=== PATIENT | female | born 1950 | race Caucasian/White ===

== ENCOUNTER 2022-03-08 18:49 | Inpatient (IN) | payer MEDICARE, MEDICAID ==
[~2022-03-08] VITALS: Ht 160 cm; Wt 84.4 kg
[2022-03-08 08:00] VITALS: BP 106/58
[2022-03-08 19:00] VITALS: BP 106/58
[2022-03-08 20:00] VITALS: BP 106/58
[2022-03-08] MEDS ORDERED: DEXTROSE 50% WATER 50ML SYRINGE IV PRN (23:30)
[2022-03-08] MEDS: ATORVASTATIN CALCIUM 40MG TABLET PO SCH (23:30)
[2022-03-08] MEDS ORDERED: DIPHENHYDRAMINE 25MG CAPSULE PO PRN (23:45)
[2022-03-08] MEDS ORDERED: CALCIUM CARBONATE 500MG TABLET CHEW PO PRN (23:45)
[2022-03-08] MEDS ORDERED: METOCLOPRAMIDE HCL 5MG TABLET PO PRN (23:45)
[2022-03-08] MEDS ORDERED: MAGNESIUM/ALUMINUM HYDROXIDE/SIMETHICONE 30ML UDC PO PRN (23:45)
[2022-03-08] MEDS ORDERED: ONDANSETRON 4MG ODT PO PRN (23:45)
[2022-03-08] MEDS ORDERED: BISACODYL 10MG SUPP PR PRN (23:45)
[2022-03-08] MEDS ORDERED: NON FORMULARY PATIENT HOME MED PO PRN (23:45)
[2022-03-09] MEDS ORDERED: ONDANSETRON HCL 4MG TABLET PO PRN
[2022-03-09] MEDS ORDERED: POLYETHYLENE GLYCOL 3350 (17GM) 1 DOSE PACK PO PRN
[2022-03-09] MEDS ORDERED: SENNOSIDES/DOCUSATE SOD 8.6/50MG TABLET PO PRN
[2022-03-09] MEDS ORDERED: ONDANSETRON HCL 4MG/2ML INJ IV PRN
[2022-03-09] MEDS: INSULIN LISPRO 100 UNITS/ML SUBCUT SCH ×5 (00:06→22:20)
[2022-03-09] MEDS: BLOOD SUGAR DIAGNOSTIC STRIP TEST SCH ×5 (00:09→20:36)
[2022-03-09] MEDS: INSULIN GLARGINE 100 UNITS/ML SUBCUT SCH ×3 (00:10→22:18)
[2022-03-09 03:39] LABS: CLARITY URINE CLEAR (CLEAR); COLOR URINE YELLOW (YELLOW); SPECIFIC GRAVITY URINE 1.021 (1.005-1.030)
[2022-03-09 03:40] LABS: KETONES URINE NEGATIVE (NEGATIVE); LEUKOCYTE ESTERASE URINE 1+ (NEGATIVE); NITRITE URINE POSITIVE (NEGATIVE); OCCULT BLOOD URINE NEGATIVE (NEGATIVE); PROTEIN URINE NEGATIVE (NEGATIVE)
[2022-03-09] MEDS ORDERED: BLOOD SUGAR DIAGNOSTIC STRIP TEST SCH (06:30)
[2022-03-09] MEDS: ALBUTEROL (0.083%) 2.5MG/3ML NEB HHN SCH ×3 (07:38→20:16)
[2022-03-09] MEDS ORDERED: INSULIN LISPRO 100 UNITS/ML SUBCUT SCH (09:00)
[2022-03-09] MEDS: HYDRALAZINE HCL 50MG TABLET PO SCH ×2 (09:15→21:00)
[2022-03-09] MEDS: ASPIRIN 81MG TABLET PO SCH (09:15)
[2022-03-09] MEDS: FUROSEMIDE 40MG TABLET PO SCH ×2 (09:16→22:11)
[2022-03-09] MEDS: METOPROLOL SUCCINATE 50MG ER TABLET PO SCH (09:17)
[2022-03-09] MEDS: AMLODIPINE 10MG TABLET PO SCH (09:17)
[2022-03-09] MEDS: ACETAMINOPHEN 325MG TABLET PO PRN ×4 (09:18→22:10)
[2022-03-09] MEDS: ASCORBIC ACID 500 MG TABLET PO SCH ×2 (09:19→22:10)
[2022-03-09] MEDS: FOLIC ACID/VITAMIN B COMP W-C TABLET PO SCH (09:19)
[2022-03-09] MEDS: POTASSIUM CHLORIDE 20MEQ TABLET SR PO SCH (09:19)
[2022-03-09] MEDS: CLOPIDOGREL 75MG TABLET PO SCH (09:19)
[2022-03-09] MEDS: ISOSORBIDE MONONITRATE 60MG TABLET SR 24HR PO SCH (10:14)
[2022-03-09] MEDS: LEVOFLOXACIN 250MG TABLET PO SCH (11:32)
[2022-03-09 12:09] LABS: BASOPHILS % 0.7 % (0.0-2.0); HEMATOCRIT. 35.1 % (36.0-48.0); HEMOGLOBIN. 11.7 g/dL (12.0-16.0); LYMPHOCYTES % 11.5 % (20.0-50.0); MEAN CORPUSCULAR HEMOGLOBIN 36.7 pg (28.0-32.0); MEAN CORPUSCULAR VOLUME 109.5 fL (81.0-99.0); MEAN PLATELET VOLUME 9.3 fl (7.4-10.4); MONOCYTES % 6.8 % (2.0-8.0); PLATELET 304 x1000/uL (130-400); RED CELL DISTRIBUTION WIDTH 15.8 % (11.6-14.6)
[2022-03-09 12:52] LABS: T4 FREE 1.23 ng/dL (0.76-1.46)
[2022-03-09 20:00] VITALS: BP 107/56
[2022-03-09] MEDS: ATORVASTATIN CALCIUM 40MG TABLET PO SCH (22:10)
[2022-03-10] MEDS: ALBUTEROL (0.083%) 2.5MG/3ML NEB HHN SCH ×4 (01:26→20:44)
[2022-03-10] MEDS: BLOOD SUGAR DIAGNOSTIC STRIP TEST SCH ×4 (06:16→21:05)
[2022-03-10] MEDS: INSULIN LISPRO 100 UNITS/ML SUBCUT SCH ×4 (06:23→21:00)
[2022-03-10 08:00] VITALS: BP 111/44
[2022-03-10] MEDS: CLOPIDOGREL 75MG TABLET PO SCH (10:30)
[2022-03-10] MEDS: AMLODIPINE 10MG TABLET PO SCH (10:30)
[2022-03-10] MEDS: METOPROLOL SUCCINATE 50MG ER TABLET PO SCH (10:30)
[2022-03-10] MEDS: HYDRALAZINE HCL 50MG TABLET PO SCH ×2 (10:30→21:00)
[2022-03-10] MEDS: ISOSORBIDE MONONITRATE 60MG TABLET SR 24HR PO SCH (10:31)
[2022-03-10] MEDS: POTASSIUM CHLORIDE 20MEQ TABLET SR PO SCH (10:31)
[2022-03-10] MEDS: ASCORBIC ACID 500 MG TABLET PO SCH ×2 (10:31→21:04)
[2022-03-10] MEDS: FOLIC ACID/VITAMIN B COMP W-C TABLET PO SCH (10:31)
[2022-03-10] MEDS: FUROSEMIDE 40MG TABLET PO SCH ×2 (10:31→21:04)
[2022-03-10] MEDS: ASPIRIN 81MG TABLET PO SCH (10:31)
[2022-03-10] MEDS: INSULIN GLARGINE 100 UNITS/ML SUBCUT SCH ×2 (10:57→22:00)
[2022-03-10] MEDS: LEVOFLOXACIN 250MG TABLET PO SCH (12:05)
[2022-03-10] MEDS ORDERED: TRAMADOL 50MG TABLET PO PRN (17:45)
[2022-03-10 20:00] VITALS: BP 108/37
[2022-03-10] MEDS: ATORVASTATIN CALCIUM 40MG TABLET PO SCH (21:04)
[2022-03-11] MEDS: ALBUTEROL (0.083%) 2.5MG/3ML NEB HHN SCH ×3 (01:16→19:46)
[2022-03-11] MEDS: INSULIN LISPRO 100 UNITS/ML SUBCUT SCH ×4 (05:46→22:11)
[2022-03-11] MEDS: BLOOD SUGAR DIAGNOSTIC STRIP TEST SCH ×4 (05:52→21:20)
[2022-03-11 08:00] VITALS: BP 109/75
[2022-03-11] MEDS: ISOSORBIDE MONONITRATE 60MG TABLET SR 24HR PO SCH (09:00)
[2022-03-11] MEDS: AMLODIPINE 10MG TABLET PO SCH (09:00)
[2022-03-11] MEDS: HYDRALAZINE HCL 50MG TABLET PO SCH ×2 (09:00→21:20)
[2022-03-11] MEDS: METOPROLOL SUCCINATE 50MG ER TABLET PO SCH (09:00)
[2022-03-11] MEDS: ASPIRIN 81MG TABLET PO SCH (10:26)
[2022-03-11] MEDS: FOLIC ACID/VITAMIN B COMP W-C TABLET PO SCH (10:26)
[2022-03-11] MEDS: CLOPIDOGREL 75MG TABLET PO SCH (10:26)
[2022-03-11] MEDS: FUROSEMIDE 40MG TABLET PO SCH ×2 (10:26→21:20)
[2022-03-11] MEDS: ASCORBIC ACID 500 MG TABLET PO SCH ×2 (10:26→21:20)
[2022-03-11] MEDS: POTASSIUM CHLORIDE 20MEQ TABLET SR PO SCH (10:26)
[2022-03-11] MEDS: ALPRAZOLAM 0.5 MG TABLET PO PRN (10:27)
[2022-03-11] MEDS: INSULIN GLARGINE 100 UNITS/ML SUBCUT SCH ×2 (10:28→22:11)
[2022-03-11] MEDS: LEVOFLOXACIN 250MG TABLET PO SCH (10:28)
[2022-03-11 20:14] VITALS: BP 97/42
[2022-03-11] MEDS: ATORVASTATIN CALCIUM 40MG TABLET PO SCH (21:20)
[2022-03-12] MEDS: ALBUTEROL (0.083%) 2.5MG/3ML NEB HHN SCH ×4 (01:09→21:22)
[2022-03-12] MEDS: BLOOD SUGAR DIAGNOSTIC STRIP TEST SCH ×4 (05:31→20:16)
[2022-03-12 05:55] LABS: EOSINOPHILS % 6.7 % (0.0-5.0); HEMATOCRIT. 33.8 % (36.0-48.0); HEMOGLOBIN. 11.4 g/dL (12.0-16.0); LYMPHOCYTES % 22.9 % (20.0-50.0); MEAN CORPUSCULAR HEMOGLOBIN 36.2 pg (28.0-32.0); MEAN CORPUSCULAR VOLUME 107.4 fL (81.0-99.0); MEAN PLATELET VOLUME 9.5 fl (7.4-10.4); MONOCYTES % 8.3 % (2.0-8.0); NEUTROPHILS % 61.1 % (40.0-76.0); PLATELET 288 x1000/uL (130-400); RED BLOOD CELL COUNT 3.14 mill/uL (4.2-5.4); RED CELL DISTRIBUTION WIDTH 15.2 % (11.6-14.6)
[2022-03-12] MEDS: INSULIN LISPRO 100 UNITS/ML SUBCUT SCH ×4 (06:17→21:23)
[2022-03-12 08:00] VITALS: BP 123/48
[2022-03-12] MEDS: ASPIRIN 81MG TABLET PO SCH (08:51)
[2022-03-12] MEDS: FUROSEMIDE 40MG TABLET PO SCH ×2 (08:51→20:16)
[2022-03-12] MEDS: ISOSORBIDE MONONITRATE 60MG TABLET SR 24HR PO SCH (08:52)
[2022-03-12] MEDS: ASCORBIC ACID 500 MG TABLET PO SCH ×2 (08:53→20:16)
[2022-03-12] MEDS: AMLODIPINE 10MG TABLET PO SCH (08:53)
[2022-03-12] MEDS: FOLIC ACID/VITAMIN B COMP W-C TABLET PO SCH (08:53)
[2022-03-12] MEDS: HYDRALAZINE HCL 50MG TABLET PO SCH ×2 (08:53→20:16)
[2022-03-12] MEDS: METOPROLOL SUCCINATE 50MG ER TABLET PO SCH (08:53)
[2022-03-12] MEDS: POTASSIUM CHLORIDE 20MEQ TABLET SR PO SCH (08:53)
[2022-03-12] MEDS: CLOPIDOGREL 75MG TABLET PO SCH (08:54)
[2022-03-12] MEDS: INSULIN GLARGINE 100 UNITS/ML SUBCUT SCH ×2 (08:56→21:23)
[2022-03-12] MEDS: ACETAMINOPHEN 325MG TABLET PO PRN ×2 (11:12→18:45)
[2022-03-12] MEDS: LEVOFLOXACIN 250MG TABLET PO SCH (11:12)
[2022-03-12 19:51] VITALS: BP 132/49
[2022-03-12] MEDS: ATORVASTATIN CALCIUM 40MG TABLET PO SCH (20:16)
[2022-03-12] MEDS: ALPRAZOLAM 0.5 MG TABLET PO PRN (21:24)
[2022-03-13] MEDS: ALBUTEROL (0.083%) 2.5MG/3ML NEB HHN SCH ×4 (02:44→21:26)
[2022-03-13] MEDS: BLOOD SUGAR DIAGNOSTIC STRIP TEST SCH ×4 (05:40→20:53)
[2022-03-13] MEDS: INSULIN LISPRO 100 UNITS/ML SUBCUT SCH ×4 (06:12→21:03)
[2022-03-13 08:00] VITALS: BP 121/45
[2022-03-13] MEDS: ISOSORBIDE MONONITRATE 60MG TABLET SR 24HR PO SCH (09:55)
[2022-03-13] MEDS: POTASSIUM CHLORIDE 20MEQ TABLET SR PO SCH (09:55)
[2022-03-13] MEDS: METOPROLOL SUCCINATE 50MG ER TABLET PO SCH (09:56)
[2022-03-13] MEDS: ASCORBIC ACID 500 MG TABLET PO SCH ×2 (09:56→20:53)
[2022-03-13] MEDS: ASPIRIN 81MG TABLET PO SCH (09:56)
[2022-03-13] MEDS: CLOPIDOGREL 75MG TABLET PO SCH (09:56)
[2022-03-13] MEDS: FOLIC ACID/VITAMIN B COMP W-C TABLET PO SCH (09:56)
[2022-03-13] MEDS: FUROSEMIDE 40MG TABLET PO SCH (09:56)
[2022-03-13] MEDS: AMLODIPINE 10MG TABLET PO SCH (09:57)
[2022-03-13] MEDS: HYDRALAZINE HCL 50MG TABLET PO SCH ×2 (09:57→20:53)
[2022-03-13] MEDS: INSULIN GLARGINE 100 UNITS/ML SUBCUT SCH ×2 (10:12→21:03)
[2022-03-13] MEDS: LEVOFLOXACIN 250MG TABLET PO SCH (11:30)
[2022-03-13] MEDS ORDERED: NALOXONE HCL 0.4MG/ML VIAL IV PRN (12:00)
[2022-03-13 20:00] VITALS: BP 121/46
[2022-03-13] MEDS: ATORVASTATIN CALCIUM 40MG TABLET PO SCH (20:53)
[2022-03-13] MEDS: MELATONIN 3MG TABLET PO PRN (23:53)
[2022-03-14] MEDS: ALBUTEROL (0.083%) 2.5MG/3ML NEB HHN SCH ×4 (02:59→20:08)
[2022-03-14] MEDS: BLOOD SUGAR DIAGNOSTIC STRIP TEST SCH ×4 (05:48→21:07)
[2022-03-14] MEDS: INSULIN LISPRO 100 UNITS/ML SUBCUT SCH ×4 (06:32→21:19)
[2022-03-14 06:50] LABS: BASOPHILS % 1.3 % (0.0-2.0); EOSINOPHILS % 8.1 % (0.0-5.0); HEMATOCRIT. 30.6 % (36.0-48.0); HEMOGLOBIN. 10.4 g/dL (12.0-16.0); LYMPHOCYTES % 26.6 % (20.0-50.0); MEAN CORPUSCULAR HEMOGLOBIN 36.4 pg (28.0-32.0); MEAN CORPUSCULAR VOLUME 106.9 fL (81.0-99.0); MEAN PLATELET VOLUME 9.5 fl (7.4-10.4); MONOCYTES % 8.2 % (2.0-8.0); NEUTROPHILS % 55.8 % (40.0-76.0); PLATELET 259 x1000/uL (130-400); RED BLOOD CELL COUNT 2.86 mill/uL (4.2-5.4); RED CELL DISTRIBUTION WIDTH 15.8 % (11.6-14.6)
[2022-03-14 07:53] VITALS: BP 124/39
[2022-03-14] MEDS: AMLODIPINE 10MG TABLET PO SCH (09:00)
[2022-03-14] MEDS: METOPROLOL SUCCINATE 50MG ER TABLET PO SCH (09:00)
[2022-03-14] MEDS: POTASSIUM CHLORIDE 20MEQ TABLET SR PO SCH (09:11)
[2022-03-14] MEDS: FUROSEMIDE 40MG TABLET PO SCH (09:11)
[2022-03-14] MEDS: ISOSORBIDE MONONITRATE 60MG TABLET SR 24HR PO SCH (09:11)
[2022-03-14] MEDS: ASCORBIC ACID 500 MG TABLET PO SCH ×2 (09:12→20:49)
[2022-03-14] MEDS: HYDRALAZINE HCL 50MG TABLET PO SCH ×2 (09:12→20:49)
[2022-03-14] MEDS: ASPIRIN 81MG TABLET PO SCH (09:12)
[2022-03-14] MEDS: FOLIC ACID/VITAMIN B COMP W-C TABLET PO SCH (09:13)
[2022-03-14] MEDS: CLOPIDOGREL 75MG TABLET PO SCH (09:13)
[2022-03-14] MEDS: ALPRAZOLAM 0.5 MG TABLET PO PRN ×2 (10:40→21:13)
[2022-03-14] MEDS: INSULIN GLARGINE 100 UNITS/ML SUBCUT SCH ×2 (10:50→21:20)
[2022-03-14] MEDS: LEVOFLOXACIN 250MG TABLET PO SCH (11:39)
[2022-03-14 20:00] VITALS: BP 130/50
[2022-03-14] MEDS: ATORVASTATIN CALCIUM 40MG TABLET PO SCH (20:49)
[2022-03-15] MEDS: ALBUTEROL (0.083%) 2.5MG/3ML NEB HHN SCH ×4 (02:50→18:00)
[2022-03-15] MEDS: BLOOD SUGAR DIAGNOSTIC STRIP TEST SCH ×4 (06:28→21:00)
[2022-03-15 06:29] LABS: EOSINOPHILS % 7.5 % (0.0-5.0); HEMATOCRIT. 29.1 % (36.0-48.0); HEMOGLOBIN. 9.7 g/dL (12.0-16.0); LYMPHOCYTES % 21.3 % (20.0-50.0); MEAN CORPUSCULAR VOLUME 107.5 fL (81.0-99.0); MEAN PLATELET VOLUME 9.4 fl (7.4-10.4); MONOCYTES % 7.6 % (2.0-8.0); NEUTROPHILS % 62.6 % (40.0-76.0); PLATELET 245 x1000/uL (130-400)
[2022-03-15 08:00] VITALS: BP 136/47
[2022-03-15] MEDS: ISOSORBIDE MONONITRATE 60MG TABLET SR 24HR PO SCH (09:00)
[2022-03-15] MEDS: CLOPIDOGREL 75MG TABLET PO SCH (09:00)
[2022-03-15] MEDS: METOPROLOL SUCCINATE 50MG ER TABLET PO SCH (09:00)
[2022-03-15] MEDS: AMLODIPINE 10MG TABLET PO SCH (09:00)
[2022-03-15] MEDS: INSULIN LISPRO 100 UNITS/ML SUBCUT SCH ×4 (09:00→21:09)
[2022-03-15] MEDS: HYDRALAZINE HCL 50MG TABLET PO SCH ×2 (09:00→21:02)
[2022-03-15] MEDS: ASPIRIN 81MG TABLET PO SCH (09:00)
[2022-03-15] MEDS: FOLIC ACID/VITAMIN B COMP W-C TABLET PO SCH (09:00)
[2022-03-15] MEDS: ASCORBIC ACID 500 MG TABLET PO SCH ×2 (09:00→21:00)
[2022-03-15] MEDS: INSULIN GLARGINE 100 UNITS/ML SUBCUT SCH ×2 (11:12→21:08)
[2022-03-15] MEDS: ATORVASTATIN CALCIUM 40MG TABLET PO SCH (21:01)
[2022-03-16] MEDS: ALPRAZOLAM 0.5 MG TABLET PO PRN (00:16)
[2022-03-16] MEDS: ACETAMINOPHEN 325MG TABLET PO PRN ×2 (00:17→21:57)
[2022-03-16] MEDS: ALBUTEROL (0.083%) 2.5MG/3ML NEB HHN SCH ×4 (00:27→20:56)
[2022-03-16 08:00] VITALS: BP 126/48
[2022-03-16] MEDS: METOPROLOL SUCCINATE 50MG ER TABLET PO SCH (08:07)
[2022-03-16] MEDS: FOLIC ACID/VITAMIN B COMP W-C TABLET PO SCH (08:07)
[2022-03-16] MEDS: ISOSORBIDE MONONITRATE 60MG TABLET SR 24HR PO SCH (08:08)
[2022-03-16] MEDS: AMLODIPINE 10MG TABLET PO SCH (08:09)
[2022-03-16] MEDS: ASCORBIC ACID 500 MG TABLET PO SCH ×2 (08:09→21:54)
[2022-03-16] MEDS: ASPIRIN 81MG TABLET PO SCH (08:09)
[2022-03-16] MEDS: CLOPIDOGREL 75MG TABLET PO SCH (08:09)
[2022-03-16] MEDS: HYDRALAZINE HCL 50MG TABLET PO SCH (08:09)
[2022-03-16] MEDS: INSULIN LISPRO 100 UNITS/ML SUBCUT SCH ×4 (09:00→22:25)
[2022-03-16] MEDS: INSULIN GLARGINE 100 UNITS/ML SUBCUT SCH ×2 (09:21→22:25)
[2022-03-16] MEDS: FUROSEMIDE 20MG TABLET PO SCH (10:59)
[2022-03-16 11:00] VITALS: BP 100/40
[2022-03-16] MEDS ORDERED: POTASSIUM CHLORIDE 8 MEQ TABLET.SA PO SCH (11:00)
[2022-03-16] MEDS: BLOOD SUGAR DIAGNOSTIC STRIP TEST SCH ×3 (11:15→21:00)
[2022-03-16] MEDS: POTASSIUM CHLORIDE 8 MEQ TABLET.SA PO SCH (13:24)
[2022-03-16 19:58] VITALS: BP 139/56
[2022-03-16] MEDS: ATORVASTATIN CALCIUM 40MG TABLET PO SCH (21:53)
[2022-03-16] MEDS: MELATONIN 3MG TABLET PO PRN (21:55)
[2022-03-17] MEDS: ALBUTEROL (0.083%) 2.5MG/3ML NEB HHN SCH ×3 (02:41→13:57)
[2022-03-17] MEDS: BLOOD SUGAR DIAGNOSTIC STRIP TEST SCH ×4 (06:30→20:50)
[2022-03-17 06:34] LABS: CHLORIDE 107 mEq/L (98-107)
[2022-03-17 06:36] LABS: BASOPHILS % 0.9 % (0.0-2.0); EOSINOPHILS % 8.7 % (0.0-5.0); HEMATOCRIT. 27.9 % (36.0-48.0); HEMOGLOBIN. 9.6 g/dL (12.0-16.0); LYMPHOCYTES % 28.2 % (20.0-50.0); MEAN CORPUSCULAR HEMOGLOBIN 36.5 pg (28.0-32.0); MEAN CORPUSCULAR VOLUME 106.2 fL (81.0-99.0); MEAN PLATELET VOLUME 9.4 fl (7.4-10.4); NEUTROPHILS % 54.2 % (40.0-76.0); PLATELET 246 x1000/uL (130-400); RED BLOOD CELL COUNT 2.63 mill/uL (4.2-5.4); RED CELL DISTRIBUTION WIDTH 15.4 % (11.6-14.6)
[2022-03-17 08:00] VITALS: BP 110/45
[2022-03-17] MEDS: ISOSORBIDE MONONITRATE 60MG TABLET SR 24HR PO SCH (09:00)
[2022-03-17] MEDS: ASCORBIC ACID 500 MG TABLET PO SCH ×2 (09:57→20:50)
[2022-03-17] MEDS: CLOPIDOGREL 75MG TABLET PO SCH (09:57)
[2022-03-17] MEDS: FOLIC ACID/VITAMIN B COMP W-C TABLET PO SCH (09:58)
[2022-03-17] MEDS: FUROSEMIDE 20MG TABLET PO SCH (09:58)
[2022-03-17] MEDS: POTASSIUM CHLORIDE 8 MEQ TABLET.SA PO SCH (09:58)
[2022-03-17] MEDS: ASPIRIN 81MG TABLET PO SCH (09:58)
[2022-03-17] MEDS: INSULIN LISPRO 100 UNITS/ML SUBCUT SCH ×4 (10:05→22:05)
[2022-03-17] MEDS: INSULIN GLARGINE 100 UNITS/ML SUBCUT SCH ×2 (10:56→22:04)
[2022-03-17 20:00] VITALS: BP 142/61
[2022-03-17] MEDS: ATORVASTATIN CALCIUM 40MG TABLET PO SCH (20:50)
[2022-03-17] MEDS: MELATONIN 3MG TABLET PO PRN (21:10)
[2022-03-18] MEDS: ALBUTEROL (0.083%) 2.5MG/3ML NEB HHN SCH ×4 (01:46→21:32)
[2022-03-18] MEDS: BLOOD SUGAR DIAGNOSTIC STRIP TEST SCH ×4 (06:06→20:41)
[2022-03-18 08:00] VITALS: BP 126/48
[2022-03-18] MEDS: ASCORBIC ACID 500 MG TABLET PO SCH ×2 (08:30→20:41)
[2022-03-18] MEDS: CLOPIDOGREL 75MG TABLET PO SCH (08:30)
[2022-03-18] MEDS: ASPIRIN 81MG TABLET PO SCH (08:30)
[2022-03-18] MEDS: POTASSIUM CHLORIDE 8 MEQ TABLET.SA PO SCH (08:31)
[2022-03-18] MEDS: FUROSEMIDE 20MG TABLET PO SCH (08:31)
[2022-03-18] MEDS: ISOSORBIDE MONONITRATE 60MG TABLET SR 24HR PO SCH (08:31)
[2022-03-18] MEDS: INSULIN LISPRO 100 UNITS/ML SUBCUT SCH ×4 (08:31→21:38)
[2022-03-18] MEDS: FOLIC ACID/VITAMIN B COMP W-C TABLET PO SCH (08:31)
[2022-03-18] MEDS ORDERED: LACTULOSE 20G/30ML UDC PO PRN (10:15)
[2022-03-18] MEDS: INSULIN GLARGINE 100 UNITS/ML SUBCUT SCH ×2 (10:37→21:38)
[2022-03-18] MEDS: ACETAMINOPHEN 325MG TABLET PO PRN (13:04)
[2022-03-18 20:00] VITALS: BP 153/49
[2022-03-18] MEDS: ATORVASTATIN CALCIUM 40MG TABLET PO SCH (20:41)
[2022-03-18] MEDS: MELATONIN 3MG TABLET PO PRN (21:49)
[2022-03-19] MEDS: ALBUTEROL (0.083%) 2.5MG/3ML NEB HHN SCH ×2 (02:50→21:30)
[2022-03-19] MEDS: BLOOD SUGAR DIAGNOSTIC STRIP TEST SCH ×4 (06:30→20:38)
[2022-03-19 08:00] VITALS: BP 144/50
[2022-03-19] MEDS: INSULIN LISPRO 100 UNITS/ML SUBCUT SCH ×4 (09:00→21:29)
[2022-03-19] MEDS: FOLIC ACID/VITAMIN B COMP W-C TABLET PO SCH (09:46)
[2022-03-19] MEDS: ISOSORBIDE MONONITRATE 60MG TABLET SR 24HR PO SCH (09:46)
[2022-03-19] MEDS: CLOPIDOGREL 75MG TABLET PO SCH (09:46)
[2022-03-19] MEDS: ASPIRIN 81MG TABLET PO SCH (09:46)
[2022-03-19] MEDS: ASCORBIC ACID 500 MG TABLET PO SCH ×2 (09:46→20:32)
[2022-03-19] MEDS: POTASSIUM CHLORIDE 8 MEQ TABLET.SA PO SCH (09:46)
[2022-03-19] MEDS: FUROSEMIDE 20MG TABLET PO SCH (09:47)
[2022-03-19] MEDS: ACETAMINOPHEN 325MG TABLET PO PRN ×2 (09:47→20:31)
[2022-03-19] MEDS: INSULIN GLARGINE 100 UNITS/ML SUBCUT SCH ×2 (11:06→21:29)
[2022-03-19] MEDS: OLANZAPINE 2.5MG TABLET PO PRN (11:16)
[2022-03-19 20:00] VITALS: BP 134/60
[2022-03-19] MEDS: ATORVASTATIN CALCIUM 40MG TABLET PO SCH (20:32)
[2022-03-19] MEDS: MELATONIN 3MG TABLET PO PRN (22:40)
[2022-03-20] MEDS: ALBUTEROL (0.083%) 2.5MG/3ML NEB HHN SCH ×3 (02:34→12:00)
[2022-03-20] MEDS: BLOOD SUGAR DIAGNOSTIC STRIP TEST SCH (05:45)
[2022-03-20 08:00] VITALS: BP 137/45
[2022-03-20] MEDS: FUROSEMIDE 20MG TABLET PO SCH (08:29)
[2022-03-20] MEDS: ASPIRIN 81MG TABLET PO SCH (08:29)
[2022-03-20] MEDS: POTASSIUM CHLORIDE 8 MEQ TABLET.SA PO SCH (08:30)
[2022-03-20] MEDS: CLOPIDOGREL 75MG TABLET PO SCH (08:30)
[2022-03-20] MEDS: ASCORBIC ACID 500 MG TABLET PO SCH (08:30)
[2022-03-20] MEDS: FOLIC ACID/VITAMIN B COMP W-C TABLET PO SCH (08:30)
[2022-03-20] MEDS: ISOSORBIDE MONONITRATE 60MG TABLET SR 24HR PO SCH (08:31)
[2022-03-20 09:00] LABS: BASOPHILS % 0.8 % (0.0-2.0); EOSINOPHILS % 4.3 % (0.0-5.0); HEMATOCRIT. 27.5 % (36.0-48.0); HEMOGLOBIN. 9.4 g/dL (12.0-16.0); LYMPHOCYTES % 25.8 % (20.0-50.0); MEAN CORPUSCULAR HEMOGLOBIN 36.1 pg (28.0-32.0); MEAN PLATELET VOLUME 9.6 fl (7.4-10.4); MONOCYTES % 6.6 % (2.0-8.0); NEUTROPHILS % 62.5 % (40.0-76.0); PLATELET 231 x1000/uL (130-400); RED BLOOD CELL COUNT 2.59 mill/uL (4.2-5.4); RED CELL DISTRIBUTION WIDTH 15.3 % (11.6-14.6)
[2022-03-20] MEDS: INSULIN LISPRO 100 UNITS/ML SUBCUT SCH (09:00)
[2022-03-20 09:04] LABS: CHLORIDE 103 mEq/L (98-107)
[2022-03-20] MEDS: INSULIN GLARGINE 100 UNITS/ML SUBCUT SCH (10:15)
[2022-03-20 10:42] VITALS: BP 137/45
[2022-03-20] MEDS: OLANZAPINE 2.5MG TABLET PO PRN (11:22)
== END 2022-03-20 12:15 | DRG 64 ==
PROVIDERS: ADMIT Psychiatry & Neurology Neurology; ATTEND Internal Medicine
DX: I63.511 Cerebral infarction due to unspecified occlusion or stenosis of right middle cerebral artery (principal); I50.21 Acute systolic (congestive) heart failure; J96.90 Respiratory failure, unspecified, unspecified whether with hypoxia or hypercapnia; I69.354 Hemiplegia and hemiparesis following cerebral infarction affecting left non-dominant side; I25.110 Atherosclerotic heart disease of native coronary artery with unstable angina pectoris; N39.0 Urinary tract infection, site not specified; N17.9 Acute kidney failure, unspecified; I13.0 Hypertensive heart and chronic kidney disease with heart failure and stage 1 through stage 4 chronic kidney disease, or unspecified chronic kidney disease; E87.1 Hypo-osmolality and hyponatremia; F32.A Depression, unspecified; M54.9 Dorsalgia, unspecified; M17.0 Bilateral primary osteoarthritis of knee; D64.9 Anemia, unspecified; E66.9 Obesity, unspecified; E11.22 Type 2 diabetes mellitus with diabetic chronic kidney disease; N18.30 Chronic kidney disease, stage 3 unspecified; Z20.822 Contact with and (suspected) exposure to COVID-19; J44.9 Chronic obstructive pulmonary disease, unspecified; E78.5 Hyperlipidemia, unspecified; F41.9 Anxiety disorder, unspecified; I08.0 Rheumatic disorders of both mitral and aortic valves; G89.29 Other chronic pain; K21.9 Gastro-esophageal reflux disease without esophagitis; M19.90 Unspecified osteoarthritis, unspecified site; Z95.1 Presence of aortocoronary bypass graft; Z82.3 Family history of stroke; I25.2 Old myocardial infarction; Z68.32 Body mass index [BMI] 32.0-32.9, adult
CPT/HCPCS: 36415; 80048; 80061; 80076; 81003; 82962; 83036; 83880; 84439; 84443; 85025; 87426; 92523; 93005; 93306; 93308; 93880; 93970; 94640; 97110; 97112; 97116; 97162; 97166; 97530; 97535; A6261; J1815

== ENCOUNTER 2022-05-14 11:22 | Inpatient (IN) | payer MEDICARE, MEDICAID ==
[~2022-05-14] VITALS: Ht 157.5 cm; Wt 89.4 kg
[2022-05-14 12:03] LABS: BASOPHILS % 0.5 % (0.0-2.0); EOSINOPHILS % 4.8 % (0.0-5.0); HEMATOCRIT. 26.5 % (36.0-48.0); HEMOGLOBIN. 9.2 g/dL (12.0-16.0); LYMPHOCYTES % 22.5 % (20.0-50.0); MEAN CORPUSCULAR HEMOGLOBIN 35.5 pg (28.0-32.0); MEAN CORPUSCULAR VOLUME 102.4 fL (81.0-99.0); MEAN PLATELET VOLUME 9.3 fl (7.4-10.4); MONOCYTES % 8.7 % (2.0-8.0); NEUTROPHILS % 63.5 % (40.0-76.0); PLATELET 217 x1000/uL (130-400); RED BLOOD CELL COUNT 2.59 mill/uL (4.2-5.4); RED CELL DISTRIBUTION WIDTH 15.5 % (11.6-14.6)
[2022-05-14 12:10] LABS: CHLORIDE 106 mEq/L (98-107)
[2022-05-14] MEDS ORDERED: FUROSEMIDE 40MG/4ML VIAL IVP ONE (14:00)
[2022-05-14] MEDS ORDERED: GABAPENTIN 300MG CAPSULE PO NR (15:45)
[2022-05-14] MEDS ORDERED: FUROSEMIDE 40MG/4ML VIAL IVP SCH (15:45)
[2022-05-14] MEDS ORDERED: CARVEDILOL 6.25 MG TABLET PO NR (15:45)
[2022-05-14] MEDS: ASPIRIN 81MG TABLET PO SCH (17:32)
[2022-05-14] MEDS: LISINOPRIL 20MG TABLET PO SCH (17:37)
[2022-05-14] MEDS: ATORVASTATIN CALCIUM 40MG TABLET PO SCH (23:50)
[2022-05-14] MEDS: LACTULOSE 20G/30ML UDC PO SCH (23:50)
[2022-05-15 00:05] VITALS: BP 152/40
[2022-05-15 04:30] VITALS: BP 138/50
[2022-05-15] MEDS: LACTULOSE 20G/30ML UDC PO SCH ×3 (05:40→22:09)
[2022-05-15] MEDS ORDERED: MELATONIN 10 MG PO PRN (06:30)
[2022-05-15] MEDS ORDERED: DEXTROSE 50% WATER 50ML SYRINGE IV PRN (06:30)
[2022-05-15] MEDS ORDERED: ACETAMINOPHEN 650MG/20.3ML UDC PO PRN (06:30)
[2022-05-15] MEDS ORDERED: ALPRAZOLAM 0.25 MG TABLET PO PRN (06:30)
[2022-05-15] MEDS: INSULIN LISPRO 100 UNITS/ML SUBCUT SCH ×4 (06:47→22:12)
[2022-05-15] MEDS: BLOOD SUGAR DIAGNOSTIC STRIP TEST SCH ×4 (06:47→21:00)
[2022-05-15] MEDS ORDERED: MEDICATION NOT ON FORMULARY EA (MELATONIN 3 MG) PO PRN (07:00)
[2022-05-15] MEDS ORDERED: MELATONIN 3MG TABLET PO PRN (07:00)
[2022-05-15 08:00] VITALS: BP 130/30
[2022-05-15] MEDS: INS NPH/REG HM 70-30 100 UNITS/ML 10ML VIAL (HUMULIN 70-30) SUBCUT SCH (08:15)
[2022-05-15] MEDS: LISINOPRIL 20MG TABLET PO SCH (09:00)
[2022-05-15] MEDS ORDERED: NA PHOS,M-B/NA PHOS,DI-BA ENEMA 118ML PR NR (09:15)
[2022-05-15] MEDS ORDERED: DOCUSATE SODIUM 250MG CAPSULE PO PRN (09:15)
[2022-05-15] MEDS ORDERED: BISACODYL 5MG TABLET PO NR (09:27)
[2022-05-15] MEDS ORDERED: ENOXAPARIN 100MG/ML SYR SUBCUT NR (09:45)
[2022-05-15] MEDS: FUROSEMIDE 40MG/4ML VIAL IVP SCH ×2 (09:46→18:30)
[2022-05-15] MEDS: CLOPIDOGREL 75MG TABLET PO SCH (09:46)
[2022-05-15] MEDS: ASPIRIN 81MG TABLET PO SCH (09:47)
[2022-05-15] MEDS: POTASSIUM CHLORIDE 8 MEQ TABLET.SA PO SCH ×2 (09:47→18:30)
[2022-05-15 11:50] LABS: BASOPHILS % 0.5 % (0.0-2.0); EOSINOPHILS % 3.8 % (0.0-5.0); HEMATOCRIT. 28.6 % (36.0-48.0); HEMOGLOBIN. 9.7 g/dL (12.0-16.0); LYMPHOCYTES % 18.4 % (20.0-50.0); MEAN CORPUSCULAR HEMOGLOBIN 34.3 pg (28.0-32.0); MEAN CORPUSCULAR VOLUME 101.6 fL (81.0-99.0); MEAN PLATELET VOLUME 8.8 fl (7.4-10.4); MONOCYTES % 7.5 % (2.0-8.0); NEUTROPHILS % 69.8 % (40.0-76.0); PLATELET 203 x1000/uL (130-400); RED BLOOD CELL COUNT 2.82 mill/uL (4.2-5.4); RED CELL DISTRIBUTION WIDTH 16.2 % (11.6-14.6)
[2022-05-15 11:54] LABS: INR 1.1; PROTHROMBIN TIME 11.9 sec (9.6-11.0)
[2022-05-15 12:00] VITALS: BP 136/32
[2022-05-15 13:02] LABS: CHLORIDE 107 mEq/L (98-107)
[2022-05-15 16:00] VITALS: BP 140/28
[2022-05-15 21:20] VITALS: BP 163/37
[2022-05-15] MEDS: ENOXAPARIN 100MG/ML SYR SUBCUT SCH (22:08)
[2022-05-15] MEDS: ATORVASTATIN CALCIUM 40MG TABLET PO SCH (22:13)
[2022-05-15] MEDS ORDERED: ACETAMINOPHEN 325MG TABLET PO NR (22:30)
[2022-05-16] VITALS (7 sets, daily range): BP systolic 146–169; BP diastolic 43–96
[2022-05-16] MEDS: BLOOD SUGAR DIAGNOSTIC STRIP TEST SCH ×4 (06:43→21:13)
[2022-05-16] MEDS: LACTULOSE 20G/30ML UDC PO SCH ×3 (06:43→21:28)
[2022-05-16] MEDS: ACETAMINOPHEN 325MG TABLET PO PRN ×2 (06:49→18:44)
[2022-05-16] MEDS: INSULIN LISPRO 100 UNITS/ML SUBCUT SCH ×4 (07:49→21:00)
[2022-05-16] MEDS: LISINOPRIL 20MG TABLET PO SCH ×2 (09:00→13:52)
[2022-05-16] MEDS: ENOXAPARIN 100MG/ML SYR SUBCUT SCH ×2 (09:11→21:42)
[2022-05-16] MEDS: ASPIRIN 81MG TABLET PO SCH (09:11)
[2022-05-16] MEDS: FUROSEMIDE 40MG/4ML VIAL IVP SCH ×2 (09:11→17:11)
[2022-05-16] MEDS: POTASSIUM CHLORIDE 8 MEQ TABLET.SA PO SCH ×2 (09:12→17:11)
[2022-05-16] MEDS: CLOPIDOGREL 75MG TABLET PO SCH (09:12)
[2022-05-16] MEDS: INS NPH/REG HM 70-30 100 UNITS/ML 10ML VIAL (HUMULIN 70-30) SUBCUT SCH (09:18)
[2022-05-16 10:22] LABS: BASOPHILS % 0.8 % (0.0-2.0); EOSINOPHILS % 5.4 % (0.0-5.0); HEMATOCRIT. 29.2 % (36.0-48.0); HEMOGLOBIN. 10.2 g/dL (12.0-16.0); LYMPHOCYTES % 31.7 % (20.0-50.0); MEAN CORPUSCULAR HEMOGLOBIN 35.1 pg (28.0-32.0); MEAN CORPUSCULAR VOLUME 100.3 fL (81.0-99.0); MEAN PLATELET VOLUME 9.4 fl (7.4-10.4); NEUTROPHILS % 52.1 % (40.0-76.0); PLATELET 213 x1000/uL (130-400); RED BLOOD CELL COUNT 2.92 mill/uL (4.2-5.4); RED CELL DISTRIBUTION WIDTH 16.1 % (11.6-14.6)
[2022-05-16 10:30] LABS: CHLORIDE 102 mEq/L (98-107)
[2022-05-16] MEDS: ATORVASTATIN CALCIUM 40MG TABLET PO SCH (21:28)
[2022-05-17 04:00] VITALS: BP 153/43
[2022-05-17] MEDS: ACETAMINOPHEN 325MG TABLET PO PRN ×2 (04:04→23:42)
[2022-05-17 05:36] LABS: BASOPHILS % 0.8 % (0.0-2.0); EOSINOPHILS % 6.3 % (0.0-5.0); HEMATOCRIT. 29.1 % (36.0-48.0); HEMOGLOBIN. 9.9 g/dL (12.0-16.0); LYMPHOCYTES % 33.8 % (20.0-50.0); MEAN CORPUSCULAR VOLUME 99.9 fL (81.0-99.0); MEAN PLATELET VOLUME 8.6 fl (7.4-10.4); MONOCYTES % 11.2 % (2.0-8.0); NEUTROPHILS % 47.9 % (40.0-76.0); PLATELET 224 x1000/uL (130-400); RED BLOOD CELL COUNT 2.92 mill/uL (4.2-5.4); RED CELL DISTRIBUTION WIDTH 15.8 % (11.6-14.6)
[2022-05-17] MEDS: LACTULOSE 20G/30ML UDC PO SCH ×3 (06:00→21:47)
[2022-05-17 06:01] LABS: CHLORIDE 103 mEq/L (98-107)
[2022-05-17] MEDS: BLOOD SUGAR DIAGNOSTIC STRIP TEST SCH ×4 (06:28→21:47)
[2022-05-17] MEDS: INSULIN LISPRO 100 UNITS/ML SUBCUT SCH ×4 (06:38→21:00)
[2022-05-17 08:00] VITALS: BP 151/49
[2022-05-17] MEDS ORDERED: POTASSIUM CHLORIDE 20MEQ TABLET SR PO NR (08:30)
[2022-05-17] MEDS: FUROSEMIDE 40MG/4ML VIAL IVP SCH ×2 (09:35→17:22)
[2022-05-17] MEDS: LISINOPRIL 20MG TABLET PO SCH (09:35)
[2022-05-17] MEDS: POTASSIUM CHLORIDE 8 MEQ TABLET.SA PO SCH ×2 (09:35→17:23)
[2022-05-17] MEDS: CLOPIDOGREL 75MG TABLET PO SCH (09:35)
[2022-05-17] MEDS: ASPIRIN 81MG TABLET PO SCH (09:35)
[2022-05-17] MEDS: ENOXAPARIN 100MG/ML SYR SUBCUT SCH ×2 (09:36→21:47)
[2022-05-17] MEDS: INS NPH/REG HM 70-30 100 UNITS/ML 10ML VIAL (HUMULIN 70-30) SUBCUT SCH (09:45)
[2022-05-17] MEDS: CLONIDINE 0.1MG TABLET PO PRN ×2 (13:33→17:23)
[2022-05-17 16:00] VITALS: BP 183/59
[2022-05-17] MEDS ORDERED: LISINOPRIL 20MG TABLET PO SCH (18:00)
[2022-05-17] MEDS: CARVEDILOL 6.25 MG TABLET PO SCH (18:38)
[2022-05-17 20:00] VITALS: BP 137/40
[2022-05-17] MEDS: ATORVASTATIN CALCIUM 40MG TABLET PO SCH (21:46)
[2022-05-18] VITALS: BP 158/42
[2022-05-18 04:00] VITALS: BP 134/51
[2022-05-18] MEDS: CARVEDILOL 6.25 MG TABLET PO SCH (05:44)
[2022-05-18] MEDS: ACETAMINOPHEN 325MG TABLET PO PRN (05:44)
[2022-05-18] MEDS: LACTULOSE 20G/30ML UDC PO SCH (05:45)
[2022-05-18] MEDS: BLOOD SUGAR DIAGNOSTIC STRIP TEST SCH (05:58)
[2022-05-18] MEDS: INSULIN LISPRO 100 UNITS/ML SUBCUT SCH (06:56)
[2022-05-18 08:00] VITALS: BP 126/45
[2022-05-18] MEDS: INS NPH/REG HM 70-30 100 UNITS/ML 10ML VIAL (HUMULIN 70-30) SUBCUT SCH (08:15)
[2022-05-18] MEDS: FUROSEMIDE 40MG/4ML VIAL IVP SCH (09:00)
[2022-05-18] MEDS: LISINOPRIL 20MG TABLET PO SCH (09:00)
[2022-05-18] MEDS: ENOXAPARIN 100MG/ML SYR SUBCUT SCH (09:00)
[2022-05-18] MEDS: CLOPIDOGREL 75MG TABLET PO SCH (09:53)
[2022-05-18] MEDS: ASPIRIN 81MG TABLET PO SCH (09:53)
[2022-05-18] MEDS: POTASSIUM CHLORIDE 8 MEQ TABLET.SA PO SCH (09:54)
== END 2022-05-18 09:40 | DRG 291 ==
LOC: ER 11:22 → 8WST 14:47 → EDBEDREQTM 14:51 → EDBEDREQ 14:51 → ENRESERV 20:11 → CANRESERV 20:11 → ENRESERV 20:14
PROVIDERS: ADMIT Internal Medicine; ATTEND Internal Medicine
DX: I11.0 Hypertensive heart disease with heart failure (principal); I50.43 Acute on chronic combined systolic (congestive) and diastolic (congestive) heart failure; I69.354 Hemiplegia and hemiparesis following cerebral infarction affecting left non-dominant side; I82.402 Acute embolism and thrombosis of unspecified deep veins of left lower extremity; E11.9 Type 2 diabetes mellitus without complications; Z20.822 Contact with and (suspected) exposure to COVID-19; D64.9 Anemia, unspecified; F41.9 Anxiety disorder, unspecified; K56.41 Fecal impaction; I25.10 Atherosclerotic heart disease of native coronary artery without angina pectoris; E66.01 Morbid (severe) obesity due to excess calories; E87.6 Hypokalemia; E78.00 Pure hypercholesterolemia, unspecified; R25.1 Tremor, unspecified; E78.5 Hyperlipidemia, unspecified; Z82.3 Family history of stroke; Z82.49 Family history of ischemic heart disease and other diseases of the circulatory system; I25.2 Old myocardial infarction; Z95.1 Presence of aortocoronary bypass graft; Z88.8 Allergy status to other drugs, medicaments and biological substances; Z83.3 Family history of diabetes mellitus
CPT/HCPCS: 36415; 71045; 74018; 80048; 80053; 82962; 83036; 83880; 84484; 85025; 93005; 93306; 93970; 99285; J1650; J1815; J1940

== ENCOUNTER 2022-11-22 02:31 | Inpatient (IN) | payer MEDICARE, MEDICAID ==
[~2022-11-22] VITALS: Ht 350.5 cm; Wt 81.6 kg
[2022-11-22] MEDS ORDERED: FUROSEMIDE 40MG/4ML VIAL IV ONE (04:45)
[2022-11-22 05:18] LABS: BASOPHILS % 0.6 % (0.0-2.0); EOSINOPHILS % 4.4 % (0.0-5.0); HEMATOCRIT. 30.8 % (36.0-48.0); HEMOGLOBIN. 10.6 g/dL (12.0-16.0); LYMPHOCYTES % 31.8 % (20.0-50.0); MEAN CORPUSCULAR HEMOGLOBIN 32.7 pg (28.0-32.0); MEAN PLATELET VOLUME 8.9 fl (7.4-10.4); MONOCYTES % 8.6 % (2.0-8.0); NEUTROPHILS % 54.6 % (40.0-76.0); PLATELET 211 x1000/uL (130-400); RED BLOOD CELL COUNT 3.24 mill/uL (4.2-5.4); RED CELL DISTRIBUTION WIDTH 15.1 % (11.6-14.6)
[2022-11-22 05:28] LABS: CHLORIDE 108 mEq/L (98-107)
[2022-11-22] MEDS ORDERED: DEXTROSE 50% WATER 50ML SYRINGE IV PRN ×2 (08:15→18:15)
[2022-11-22] MEDS ORDERED: DOCUSATE SODIUM 100MG CAPSULE PO PRN (08:15)
[2022-11-22] MEDS ORDERED: CLONIDINE 0.1MG TABLET PO PRN (08:15)
[2022-11-22] MEDS ORDERED: ONDANSETRON HCL 4MG/2ML INJ IV PRN (08:15)
[2022-11-22] MEDS ORDERED: GUAIFENESIN 200MG/10ML SUGAR FREE UDC PO PRN (08:15)
[2022-11-22] MEDS ORDERED: INSULIN LISPRO 100 UNITS/ML SUBCUT SCH (08:20)
[2022-11-22] MEDS ORDERED: AMLODIPINE 10MG TABLET PO SCH (09:00)
[2022-11-22] MEDS ORDERED: FUROSEMIDE 40MG/4ML VIAL IV SCH (09:00)
[2022-11-22] MEDS ORDERED: CEFTRIAXONE 1GM PREMIX 50 ML IV SCH (09:00)
[2022-11-22] MEDS ORDERED: BLOOD SUGAR DIAGNOSTIC STRIP TEST SCH (09:00)
[2022-11-22 10:03] LABS: TOTAL IRON BINDING CAPACITY 256 ug/dL (250-450)
[2022-11-22] MEDS: ENOXAPARIN 40MG/0.4ML SYR SUBCUT SCH (11:01)
[2022-11-22 12:50] VITALS: BP 187/50
[2022-11-22 13:00] VITALS: BP 136/78
[2022-11-22] MEDS: LOSARTAN POTASSIUM 50 MG TABLET PO SCH (13:45)
[2022-11-22] MEDS ORDERED: ASPIRIN 81MG EC TABLET PO NR (15:45)
[2022-11-22 16:00] VITALS: BP 20/98
[2022-11-22] MEDS: HYDRALAZINE HCL 50MG TABLET PO SCH ×2 (16:00→22:01)
[2022-11-22] MEDS: FUROSEMIDE 40MG/4ML VIAL IV SCH (17:00)
[2022-11-22 17:46] LABS: CREATINE KINASE MB FRACTION 1.3 ng/mL (0.5-3.6)
[2022-11-22] MEDS: METOPROLOL TARTRATE 25MG TABLET PO SCH ×2 (18:00→22:00)
[2022-11-22] MEDS: INSULIN LISPRO 100 UNITS/ML SUBCUT SCH ×2 (18:10→22:01)
[2022-11-22 18:49] LABS: VITAMIN B12 SERUM 141 pg/mL (211-911)
[2022-11-22 20:00] VITALS: BP 153/41
[2022-11-22] MEDS: BLOOD SUGAR DIAGNOSTIC STRIP TEST SCH (21:00)
[2022-11-22] MEDS ORDERED: INSULIN GLARGINE 100 UNITS/ML SUBCUT SCH (21:00)
[2022-11-22] MEDS: FAMOTIDINE 20MG TABLET PO SCH (22:01)
[2022-11-22] MEDS: INSULIN GLARGINE 100 UNITS/ML SUBCUT SCH (22:03)
[2022-11-23] VITALS: BP 126/41
[2022-11-23 00:10] LABS: CREATINE KINASE MB FRACTION 1.3 ng/mL (0.5-3.6)
[2022-11-23] MEDS: ACETAMINOPHEN 325MG TABLET PO PRN ×2 (00:15→21:44)
[2022-11-23 04:00] VITALS: BP 146/32
[2022-11-23 05:32] LABS: BASOPHILS % 0.5 % (0.0-2.0); EOSINOPHILS % 3.9 % (0.0-5.0); HEMATOCRIT. 34.5 % (36.0-48.0); HEMOGLOBIN. 11.8 g/dL (12.0-16.0); LYMPHOCYTES % 33.4 % (20.0-50.0); MEAN CORPUSCULAR HEMOGLOBIN 32.5 pg (28.0-32.0); MEAN CORPUSCULAR VOLUME 95.2 fL (81.0-99.0); MONOCYTES % 10.5 % (2.0-8.0); NEUTROPHILS % 51.7 % (40.0-76.0); PLATELET 230 x1000/uL (130-400); RED BLOOD CELL COUNT 3.63 mill/uL (4.2-5.4); RED CELL DISTRIBUTION WIDTH 14.7 % (11.6-14.6)
[2022-11-23] MEDS: METOPROLOL TARTRATE 25MG TABLET PO SCH (05:44)
[2022-11-23] MEDS: HYDRALAZINE HCL 50MG TABLET PO SCH ×3 (05:53→21:44)
[2022-11-23 06:09] LABS: CHLORIDE 107 mEq/L (98-107)
[2022-11-23] MEDS: BLOOD SUGAR DIAGNOSTIC STRIP TEST SCH ×4 (06:31→21:00)
[2022-11-23 06:38] LABS: T4 FREE 0.99 ng/dL (0.76-1.46)
[2022-11-23] MEDS ORDERED: NITROGLYCERIN SPRAY/4.9GM CAN TL ONE (07:15)
[2022-11-23 08:00] VITALS: BP 182/54
[2022-11-23] MEDS: INSULIN LISPRO 100 UNITS/ML SUBCUT SCH ×4 (08:10→21:46)
[2022-11-23] MEDS: POTASSIUM CHLORIDE 20MEQ/PACKET PO SCH (09:00)
[2022-11-23] MEDS: LOSARTAN POTASSIUM 50 MG TABLET PO SCH (09:00)
[2022-11-23] MEDS: ASPIRIN 81MG EC TABLET PO SCH (09:00)
[2022-11-23] MEDS ORDERED: METOPROLOL SUCCINATE 50MG ER TABLET PO PRN (09:15)
[2022-11-23] MEDS ORDERED: ALPRAZOLAM 0.25 MG TABLET PO PRN (09:15)
[2022-11-23] MEDS: METOPROLOL TARTRATE 100MG TABLET PO SCH ×2 (09:16→21:00)
[2022-11-23] MEDS: FUROSEMIDE 40MG/4ML VIAL IV SCH ×2 (10:19→17:23)
[2022-11-23] MEDS: ENOXAPARIN 40MG/0.4ML SYR SUBCUT SCH (10:19)
[2022-11-23 12:00] VITALS: BP 137/38
[2022-11-23] MEDS: CEFTRIAXONE 1,000 MG in DEXTROSE 5% WATER 50 ML IV SCH (12:39)
[2022-11-23] MEDS ORDERED: IOHEXOL-350 100 ML BOTTLE ONE (14:57)
[2022-11-23 16:00] VITALS: BP 128/68
[2022-11-23 20:34] VITALS: BP 147/34
[2022-11-23] MEDS: FAMOTIDINE 20MG TABLET PO SCH (21:44)
[2022-11-23] MEDS: INSULIN GLARGINE 100 UNITS/ML SUBCUT SCH (21:45)
[2022-11-24 00:27] VITALS: BP 122/37
[2022-11-24 04:00] VITALS: BP 134/39
[2022-11-24] MEDS: HYDRALAZINE HCL 50MG TABLET PO SCH ×3 (05:42→21:14)
[2022-11-24] MEDS: BLOOD SUGAR DIAGNOSTIC STRIP TEST SCH ×4 (06:03→21:00)
[2022-11-24 06:27] LABS: BASOPHILS % 0.3 % (0.0-2.0); EOSINOPHILS % 3.5 % (0.0-5.0); HEMATOCRIT. 33.1 % (36.0-48.0); HEMOGLOBIN. 11.5 g/dL (12.0-16.0); LYMPHOCYTES % 19.7 % (20.0-50.0); MEAN CORPUSCULAR HEMOGLOBIN 33.1 pg (28.0-32.0); MEAN CORPUSCULAR VOLUME 94.8 fL (81.0-99.0); MEAN PLATELET VOLUME 8.8 fl (7.4-10.4); MONOCYTES % 7.7 % (2.0-8.0); NEUTROPHILS % 68.8 % (40.0-76.0); PLATELET 213 x1000/uL (130-400); RED BLOOD CELL COUNT 3.49 mill/uL (4.2-5.4); RED CELL DISTRIBUTION WIDTH 14.8 % (11.6-14.6)
[2022-11-24 06:36] LABS: CHLORIDE 107 mEq/L (98-107)
[2022-11-24 08:00] VITALS: BP 115/78
[2022-11-24] MEDS: METOPROLOL TARTRATE 100MG TABLET PO SCH ×2 (09:00→21:00)
[2022-11-24] MEDS: ENOXAPARIN 40MG/0.4ML SYR SUBCUT SCH (09:19)
[2022-11-24] MEDS: FUROSEMIDE 40MG/4ML VIAL IV SCH (09:20)
[2022-11-24] MEDS: LOSARTAN POTASSIUM 50 MG TABLET PO SCH (09:20)
[2022-11-24] MEDS: ASPIRIN 81MG EC TABLET PO SCH (09:20)
[2022-11-24] MEDS: POTASSIUM CHLORIDE 20MEQ/PACKET PO SCH (09:21)
[2022-11-24] MEDS: INSULIN LISPRO 100 UNITS/ML SUBCUT SCH ×5 (09:21→21:00)
[2022-11-24] MEDS: ACETAMINOPHEN 325MG TABLET PO PRN ×2 (09:32→21:14)
[2022-11-24 12:00] VITALS: BP 132/48
[2022-11-24] MEDS ORDERED: POTASSIUM CHLORIDE 20MEQ/PACKET PO NR (12:15)
[2022-11-24] MEDS: CEFTRIAXONE 1,000 MG in DEXTROSE 5% WATER 50 ML IV SCH (13:31)
[2022-11-24 16:00] VITALS: BP 139/38
[2022-11-24 16:37] LABS: CREATINE KINASE 69 IU/L (26-192)
[2022-11-24 20:00] VITALS: BP 142/54
[2022-11-24] MEDS: FAMOTIDINE 20MG TABLET PO SCH (21:13)
[2022-11-24] MEDS: INSULIN GLARGINE 100 UNITS/ML SUBCUT SCH (21:18)
[2022-11-25] VITALS: BP 135/46
[2022-11-25 04:00] VITALS: BP 131/51
[2022-11-25] MEDS: ACETAMINOPHEN 325MG TABLET PO PRN ×4 (04:39→21:27)
[2022-11-25] MEDS: HYDRALAZINE HCL 50MG TABLET PO SCH (06:23)
[2022-11-25] MEDS: BLOOD SUGAR DIAGNOSTIC STRIP TEST SCH ×4 (06:49→21:00)
[2022-11-25 07:18] LABS: BASOPHILS % 0.3 % (0.0-2.0); EOSINOPHILS % 6.7 % (0.0-5.0); HEMATOCRIT. 33.1 % (36.0-48.0); HEMOGLOBIN. 11.3 g/dL (12.0-16.0); LYMPHOCYTES % 24.3 % (20.0-50.0); MEAN CORPUSCULAR HEMOGLOBIN 32.8 pg (28.0-32.0); MEAN CORPUSCULAR VOLUME 95.8 fL (81.0-99.0); MONOCYTES % 9.2 % (2.0-8.0); NEUTROPHILS % 59.5 % (40.0-76.0); PLATELET 222 x1000/uL (130-400); RED BLOOD CELL COUNT 3.45 mill/uL (4.2-5.4); RED CELL DISTRIBUTION WIDTH 14.8 % (11.6-14.6)
[2022-11-25 08:00] VITALS: BP 152/52
[2022-11-25 08:12] LABS: CHLORIDE 106 mEq/L (98-107)
[2022-11-25] MEDS: ENOXAPARIN 40MG/0.4ML SYR SUBCUT SCH (08:54)
[2022-11-25] MEDS: ASPIRIN 81MG EC TABLET PO SCH (08:54)
[2022-11-25] MEDS: INSULIN LISPRO 100 UNITS/ML SUBCUT SCH ×4 (09:01→21:00)
[2022-11-25] MEDS: METOPROLOL TARTRATE 100MG TABLET PO SCH (09:01)
[2022-11-25 12:00] VITALS: BP 165/44
[2022-11-25] MEDS: SODIUM CHLORIDE 0.45% 1,000 ML IV SCH (12:42)
[2022-11-25] MEDS: CEFTRIAXONE 1,000 MG in DEXTROSE 5% WATER 50 ML IV SCH (12:48)
[2022-11-25] MEDS: HYDRALAZINE HCL 25MG TABLET PO SCH ×2 (14:00→21:28)
[2022-11-25 16:00] VITALS: BP 104/44
[2022-11-25 16:39] LABS: CLARITY URINE CLEAR (CLEAR); COLOR URINE YELLOW (YELLOW); KETONES URINE TRACE (NEGATIVE); LEUKOCYTE ESTERASE URINE NEGATIVE (NEGATIVE); NITRITE URINE NEGATIVE (NEGATIVE); OCCULT BLOOD URINE NEGATIVE (NEGATIVE); PROTEIN URINE NEGATIVE (NEGATIVE); SPECIFIC GRAVITY URINE 1.022 (1.005-1.030); UROBILINOGEN URINE 0.2 E.U./dL (0.2-1.0)
[2022-11-25 20:00] VITALS: BP 170/51
[2022-11-25] MEDS: METOPROLOL TARTRATE 50MG TABLET PO SCH (21:00)
[2022-11-25] MEDS: INSULIN GLARGINE 100 UNITS/ML SUBCUT SCH (21:36)
[2022-11-26] VITALS: BP 162/89
[2022-11-26] MEDS: SODIUM CHLORIDE 0.45% 1,000 ML IV SCH ×2 (00:30→12:56)
[2022-11-26 04:00] VITALS: BP 158/86
[2022-11-26] MEDS: ACETAMINOPHEN 325MG TABLET PO PRN (04:04)
[2022-11-26 05:51] LABS: BASOPHILS % 0.4 % (0.0-2.0); HEMATOCRIT. 33.1 % (36.0-48.0); HEMOGLOBIN. 11.6 g/dL (12.0-16.0); LYMPHOCYTES % 22.1 % (20.0-50.0); MEAN CORPUSCULAR HEMOGLOBIN 33.1 pg (28.0-32.0); MEAN CORPUSCULAR VOLUME 94.6 fL (81.0-99.0); MEAN PLATELET VOLUME 9.5 fl (7.4-10.4); MONOCYTES % 9.9 % (2.0-8.0); NEUTROPHILS % 59.6 % (40.0-76.0); PLATELET 214 x1000/uL (130-400); RED CELL DISTRIBUTION WIDTH 14.6 % (11.6-14.6)
[2022-11-26 06:06] LABS: CHLORIDE 107 mEq/L (98-107)
[2022-11-26] MEDS: HYDRALAZINE HCL 25MG TABLET PO SCH ×2 (06:20→13:10)
[2022-11-26] MEDS: BLOOD SUGAR DIAGNOSTIC STRIP TEST SCH ×2 (06:46→12:45)
[2022-11-26] MEDS ORDERED: FAMOTIDINE 20MG TABLET PO SCH (07:00)
[2022-11-26 08:00] VITALS: BP 165/58
[2022-11-26] MEDS: INSULIN LISPRO 100 UNITS/ML SUBCUT SCH ×2 (08:32→12:46)
[2022-11-26] MEDS: METOPROLOL TARTRATE 50MG TABLET PO SCH (08:33)
[2022-11-26] MEDS: ASPIRIN 81MG EC TABLET PO SCH (08:33)
[2022-11-26] MEDS ORDERED: ENOXAPARIN 30MG/0.3ML SYR SUBCUT SCH (09:00)
[2022-11-26 11:48] VITALS: BP 154/58
[2022-11-26 12:00] VITALS: BP 158/58
[2022-11-26] MEDS: CEFTRIAXONE 1,000 MG in DEXTROSE 5% WATER 50 ML IV SCH (12:45)
[2022-11-26] MEDS ORDERED: ACETAMINOPHEN 650MG/20.3ML UDC PO PRN (13:15)
[2022-11-26] MEDS ORDERED: ACETAMINOPHEN 325MG TABLET PO PRN (13:15)
[2022-11-26 16:00] VITALS: BP 168/52
== END 2022-11-26 18:10 | DRG 291 ==
LOC: ER 02:31 → 7WST 06:55 → EDBEDREQ 06:58
PROVIDERS: ADMIT Internal Medicine; ATTEND Internal Medicine
DX: I13.0 Hypertensive heart and chronic kidney disease with heart failure and stage 1 through stage 4 chronic kidney disease, or unspecified chronic kidney disease (principal); I50.23 Acute on chronic systolic (congestive) heart failure; N17.9 Acute kidney failure, unspecified; Z68.44 Body mass index [BMI] 60.0-69.9, adult; D63.1 Anemia in chronic kidney disease; E11.22 Type 2 diabetes mellitus with diabetic chronic kidney disease; E78.00 Pure hypercholesterolemia, unspecified; F32.A Depression, unspecified; Z20.822 Contact with and (suspected) exposure to COVID-19; F41.9 Anxiety disorder, unspecified; I25.10 Atherosclerotic heart disease of native coronary artery without angina pectoris; M17.0 Bilateral primary osteoarthritis of knee; I48.91 Unspecified atrial fibrillation; E87.6 Hypokalemia; N18.9 Chronic kidney disease, unspecified; E66.9 Obesity, unspecified; E11.42 Type 2 diabetes mellitus with diabetic polyneuropathy; E86.0 Dehydration; Z90.49 Acquired absence of other specified parts of digestive tract; Z79.4 Long term (current) use of insulin; Z79.82 Long term (current) use of aspirin; Z83.3 Family history of diabetes mellitus; Z95.1 Presence of aortocoronary bypass graft; Z86.73 Personal history of transient ischemic attack (TIA), and cerebral infarction without residual deficits
CPT/HCPCS: 36415; 71045; 75571; 76770; 80053; 81003; 82550; 82553; 82607; 82728; 82746; 82962; 83036; 83540; 83550; 83880; 84439; 84443; 84484; 85025; 93005; 93306; 93970; 97116; 97162; 97166; 99285; J0696; J1650; J1815; J1940; J7060; Q9967

== ENCOUNTER 2023-03-18 14:55 | Inpatient (IN) | payer MEDICARE, MEDICAID ==
[~2023-03-18] VITALS: Ht 162.6 cm; Wt 82.7 kg
[~2023-03-18 14:55] MED LIST: ATOR40TA70 PO; CLOP75TA33 PO; FURO20TA4 PO; HYDR-4134 PO; ISOS30TA91 PO; POTA10CA43 PO
[2023-03-18 16:19] LABS: HEMATOCRIT. 30.5 % (36.0-48.0); HEMOGLOBIN. 10.2 g/dL (12.0-16.0); MEAN CORPUSCULAR HEMOGLOBIN 30.8 pg (28.0-32.0); MEAN CORPUSCULAR HGB CONC 33.4 g/dL (31.0-37.0); MEAN CORPUSCULAR VOLUME 92.2 fL (81.0-99.0); MEAN PLATELET VOLUME 8.5 fl (7.4-10.4); PLATELET 221 x1000/uL (130-400); RED BLOOD CELL COUNT 3.31 mill/uL (4.2-5.4); RED CELL DISTRIBUTION WIDTH 15.4 % (11.6-14.6); WHITE BLOOD COUNT 4.2 x1000/uL (4.5-11.0)
[2023-03-18 16:22] LABS: DIFFERENTIAL COMMENT 1
[2023-03-18 16:23] LABS: CHLORIDE 104 mEq/L (98-107); INDEX HEMOLYSI 1 (1-3); INDEX ICTERIC 1 (1-4); INDEX LIPEMIC 1 (1-3); POTASSIUM 3.8 mEq/L (3.5-5.1); SODIUM 138 mEq/L (136-145)
[2023-03-18 16:34] LABS: ALANINE AMINOTRANSFERASE 28 IU/L (13-61); ALBUMIN 3.2 g/dL (3.4-5.0); ASPARTATE AMINOTRANSFERASE 26 IU/L (15-37); BILIRUBIN TOTAL 0.4 mg/dL (0.1-1.0); CARBON DIOXIDE 27 mEq/L (21-32); CREATININE 1.2 mg/dL (0.6-1.3); GLUCOSE 250 mg/dL (70-105); NT PRO B-TYPE NATRIURETIC PEP 5061 pg/mL (5-125); TROPONIN I HIGH SENSITIVITY 41 ng/L (<54); UREA NITROGEN BLOOD 51 mg/dL (7-21)
[2023-03-18] MEDS ORDERED: ASPIRIN 325MG EC TABLET PO NR (17:30)
[2023-03-18] MEDS ORDERED: MECLIZINE 12.5MG TABLET PO NR (17:30)
[2023-03-18] MEDS ORDERED: ACETAMINOPHEN 325MG TABLET PO ONE (17:30)
[2023-03-18 17:48] LABS: ANISOCYTOSIS 1+; PLATELET ESTIMATE NORMAL
[2023-03-18 18:35] LABS: TROPONIN I HIGH SENSITIVITY 44 ng/L (<54)
[2023-03-19] MEDS ORDERED: METOPROLOL SUCCINATE 50MG ER TABLET PO PRN (03:45)
[2023-03-19] MEDS ORDERED: HYDRALAZINE HCL 25MG TABLET PO SCH (04:15)
[2023-03-19 04:30] VITALS: BP 177/50; PULSE 60; RESP 18; TEMP 97.7
[2023-03-19] MEDS ORDERED: ALPRAZOLAM 0.5 MG TABLET PO PRN (07:00)
[2023-03-19] MEDS ORDERED: DEXTROSE 50% WATER 50ML SYRINGE IV PRN (07:00)
[2023-03-19] MEDS ORDERED: LACTULOSE 20G/30ML UDC PO PRN (07:00)
[2023-03-19] MEDS ORDERED: NALOXONE HCL 0.4MG/ML VIAL IV PRN (07:15)
[2023-03-19] MEDS: BLOOD SUGAR DIAGNOSTIC STRIP TEST SCH ×4 (07:50→21:23)
[2023-03-19 08:00] VITALS: BP 165/43; PULSE 57; RESP 18; TEMP 97.3
[2023-03-19] MEDS: ASPIRIN 81MG TABLET PO SCH (08:25)
[2023-03-19] MEDS: INSULIN LISPRO 100 UNITS/ML SUBCUT SCH ×4 (08:25→21:24)
[2023-03-19] MEDS: DOCUSATE SODIUM 250MG CAPSULE PO SCH (08:32)
[2023-03-19] MEDS: AMLODIPINE 5MG TABLET PO SCH ×2 (08:32→21:22)
[2023-03-19] MEDS: CLOPIDOGREL 75MG TABLET PO SCH (08:32)
[2023-03-19] MEDS: FUROSEMIDE 20MG TABLET PO SCH (08:32)
[2023-03-19] MEDS: POTASSIUM CHLORIDE 8 MEQ TABLET.SA PO SCH (08:33)
[2023-03-19] MEDS ORDERED: METOPROLOL TARTRATE 50MG TABLET PO SCH (09:00)
[2023-03-19] MEDS: ENOXAPARIN 40MG/0.4ML SYR SUBCUT SCH (09:48)
[2023-03-19] MEDS: INSULIN GLARGINE 100 UNITS/ML SUBCUT SCH ×2 (09:48→21:24)
[2023-03-19] MEDS ORDERED: LOPERAMIDE HCL 2MG CAPSULE PO PRN ×2 (10:00)
[2023-03-19 12:00] VITALS: BP 157/32; PULSE 54; RESP 18; TEMP 97.1
[2023-03-19] MEDS: HYDRALAZINE HCL 25MG TABLET PO SCH ×2 (14:20→21:23)
[2023-03-19 16:00] VITALS: BP 163/38; PULSE 57; RESP 18; TEMP 97.5
[2023-03-19 20:00] VITALS: BP 136/38; PULSE 57; PULSE 77; RESP 18; TEMP 97.5
[2023-03-19] MEDS: ATORVASTATIN CALCIUM 40MG TABLET PO SCH (21:22)
[2023-03-19] MEDS: TRAMADOL 50MG TABLET PO PRN (21:22)
[2023-03-20] VITALS: BP 128/35; PULSE 63; RESP 18; TEMP 97.6
[2023-03-20 00:39] LABS: TROPONIN I HIGH SENSITIVITY 41 ng/L (<54)
[2023-03-20 04:00] VITALS: BP 136/36; PULSE 57; RESP 18; TEMP 97.8
[2023-03-20] MEDS: ACETAMINOPHEN 325MG TABLET PO PRN (04:25)
[2023-03-20] MEDS: HYDRALAZINE HCL 25MG TABLET PO SCH ×3 (05:09→21:13)
[2023-03-20] MEDS: BLOOD SUGAR DIAGNOSTIC STRIP TEST SCH ×4 (06:48→21:00)
[2023-03-20 07:57] VITALS: BP 134/35; PULSE 57; RESP 18; TEMP 98.2
[2023-03-20] MEDS: CLOPIDOGREL 75MG TABLET PO SCH (08:25)
[2023-03-20] MEDS: ENOXAPARIN 40MG/0.4ML SYR SUBCUT SCH (08:25)
[2023-03-20] MEDS: POTASSIUM CHLORIDE 8 MEQ TABLET.SA PO SCH (08:25)
[2023-03-20] MEDS: AMLODIPINE 5MG TABLET PO SCH ×2 (08:25→21:14)
[2023-03-20] MEDS: ASPIRIN 81MG TABLET PO SCH (08:25)
[2023-03-20] MEDS: FUROSEMIDE 20MG TABLET PO SCH (08:25)
[2023-03-20] MEDS: DOCUSATE SODIUM 250MG CAPSULE PO SCH (08:26)
[2023-03-20] MEDS: TRAMADOL 50MG TABLET PO PRN ×2 (08:26→21:13)
[2023-03-20] MEDS: INSULIN LISPRO 100 UNITS/ML SUBCUT SCH ×4 (08:28→21:17)
[2023-03-20] MEDS: INSULIN GLARGINE 100 UNITS/ML SUBCUT SCH ×2 (10:03→21:19)
[2023-03-20 11:28] VITALS: BP 147/31; PULSE 54; RESP 18; TEMP 98
[2023-03-20 16:00] VITALS: BP 136/36; PULSE 70; RESP 18; TEMP 97.8
[2023-03-20 20:44] VITALS: BP 156/64; PULSE 70; RESP 19; TEMP 97.6
[2023-03-20] MEDS: ATORVASTATIN CALCIUM 40MG TABLET PO SCH (21:14)
[2023-03-21] VITALS (7 sets, daily range): BP systolic 120–154; BP diastolic 34–47; PULSE 55–70; RESP 16–22; TEMP 97.1–99.1; O2SAT 98
[2023-03-21] MEDS: ACETAMINOPHEN 325MG TABLET PO PRN (00:10)
[2023-03-21] MEDS: HYDRALAZINE HCL 25MG TABLET PO SCH ×2 (05:53→14:08)
[2023-03-21 06:34] LABS: BASOPHILS % 0.5 % (0.0-2.0); EOSINOPHILS % 5.9 % (0.0-5.0); HEMATOCRIT. 31.7 % (36.0-48.0); HEMOGLOBIN. 10.9 g/dL (12.0-16.0); LYMPHOCYTES % 39.9 % (20.0-50.0); MEAN CORPUSCULAR HEMOGLOBIN 30.8 pg (28.0-32.0); MEAN CORPUSCULAR HGB CONC 34.3 g/dL (31.0-37.0); MEAN CORPUSCULAR VOLUME 89.6 fL (81.0-99.0); MEAN PLATELET VOLUME 8.4 fl (7.4-10.4); MONOCYTES % 9.4 % (2.0-8.0); NEUTROPHILS % 44.3 % (40.0-76.0); PLATELET 231 x1000/uL (130-400); RED BLOOD CELL COUNT 3.54 mill/uL (4.2-5.4); RED CELL DISTRIBUTION WIDTH 15.4 % (11.6-14.6); WHITE BLOOD COUNT 4.9 x1000/uL (4.5-11.0)
[2023-03-21] MEDS: BLOOD SUGAR DIAGNOSTIC STRIP TEST SCH ×3 (07:28→17:20)
[2023-03-21] MEDS: INSULIN LISPRO 100 UNITS/ML SUBCUT SCH ×3 (07:29→17:22)
[2023-03-21 08:26] LABS: POTASSIUM 3.8 mEq/L (3.5-5.1)
[2023-03-21 08:32] LABS: CALCIUM 8.9 mg/dL (8.5-10.1); CREATININE 1.1 mg/dL (0.6-1.3); PHOSPHORUS 3.6 mg/dL (2.5-4.9)
[2023-03-21] MEDS: AMLODIPINE 5MG TABLET PO SCH (08:55)
[2023-03-21] MEDS: ASPIRIN 81MG TABLET PO SCH (08:55)
[2023-03-21] MEDS: DOCUSATE SODIUM 250MG CAPSULE PO SCH (08:55)
[2023-03-21] MEDS: CLOPIDOGREL 75MG TABLET PO SCH (08:56)
[2023-03-21] MEDS: FUROSEMIDE 20MG TABLET PO SCH (08:56)
[2023-03-21] MEDS: POTASSIUM CHLORIDE 8 MEQ TABLET.SA PO SCH (08:56)
[2023-03-21] MEDS: ENOXAPARIN 40MG/0.4ML SYR SUBCUT SCH (08:56)
[2023-03-21] MEDS ORDERED: GUAIFENESIN/CODEINE 100-10MG/5ML UDC PO PRN (10:15)
[2023-03-21] MEDS ORDERED: AZITHROMYCIN 500 MG TABLET PO SCH (10:15)
[2023-03-21] MEDS: INSULIN GLARGINE 100 UNITS/ML SUBCUT SCH (10:18)
[2023-03-21] MEDS ORDERED: MUPIROCIN 2% OINT 15GM NS SCH (12:30)
[2023-03-21] MEDS ORDERED: GUAIFENESIN/CODEINE 200-20MG/10ML UDC PO PRN (14:52)
[2023-03-21] MEDS: TRAMADOL 50MG TABLET PO PRN (15:53)
== END 2023-03-21 18:55 | DRG 291 ==
LOC: ER 14:55 → MICUSO 21:21 → EDBEDREQTM 21:25 → EDBEDREQ 21:25 → 7WST 03-19 05:05
PROVIDERS: ADMIT Internal Medicine; ATTEND Internal Medicine
DX: I13.0 Hypertensive heart and chronic kidney disease with heart failure and stage 1 through stage 4 chronic kidney disease, or unspecified chronic kidney disease (principal); I50.33 Acute on chronic diastolic (congestive) heart failure; F03.94 Unspecified dementia, unspecified severity, with anxiety; N17.9 Acute kidney failure, unspecified; R07.89 Other chest pain; I05.0 Rheumatic mitral stenosis; R00.1 Bradycardia, unspecified; E11.22 Type 2 diabetes mellitus with diabetic chronic kidney disease; E66.9 Obesity, unspecified; D64.9 Anemia, unspecified; I25.10 Atherosclerotic heart disease of native coronary artery without angina pectoris; M17.0 Bilateral primary osteoarthritis of knee; E78.00 Pure hypercholesterolemia, unspecified; R05.9 Cough, unspecified; N18.9 Chronic kidney disease, unspecified; E11.42 Type 2 diabetes mellitus with diabetic polyneuropathy; Z86.73 Personal history of transient ischemic attack (TIA), and cerebral infarction without residual deficits; Z95.1 Presence of aortocoronary bypass graft; Z98.61 Coronary angioplasty status; I25.2 Old myocardial infarction; Z68.31 Body mass index [BMI] 31.0-31.9, adult; Z88.8 Allergy status to other drugs, medicaments and biological substances; Z79.899 Other long term (current) drug therapy; Z87.440 Personal history of urinary (tract) infections
CPT/HCPCS: 36415; 71045; 80048; 80053; 82962; 83036; 83605; 83735; 83880; 84100; 84484; 85025; 93005; 93970; 99285; C1893; J1650; J1815; J8597